=== PATIENT | male | born 2000 ===

== ENCOUNTER 2023-07-08 17:06 | Inpatient (IN) | payer OTHER ==
[~2023-07-08] VITALS: Ht 167.6 cm; Wt 68.5 kg
[~2023-07-08 17:06] MED LIST: DAZIDOX10 MG PO
[2023-07-08] MEDS ORDERED: HYDROmorphone 0.5 MG/0.5 ML SYRINGE IV ONE ×4 (17:45→20:45)
[2023-07-08] MEDS ORDERED: NS 1,000 ML IV ONE ×2 (17:45→19:30)
[2023-07-08 18:00] LABS: BASO % 0.4 % (0.0-2.0); EOS % 0.8 % (0.0-4.0); GRAN # 3.1 K/mm3 (1.4-6.5); GRAN % 64.3 % (42.2-75.2); HEMOGLOBIN 12.6 g/dl (13.5-18.0); LYMPH # 1.4 K/mm3 (1.2-3.4); LYMPH % 28.7 % (20.0-51.0); MEAN CELL VOLUME 89 fl (80.0-100.0); MEAN CORPUSCULAR HEMOGLOBIN 31 pg (27-31); MEAN CORPUSCULAR HGB CONC 35 g/dl (33.0-37.0); MONO # 0.2 K/mm3 (0.1-0.6); PLATELET COUNT 230 K/mm3 (130-400); RED BLOOD COUNT 4.02 M/mm3 (4.20-5.60); REDCELL DISTRIBUTION WIDTH-CV 16.8 % (11.5-14.5); RETIC # 0.17 M/mm3 (0.02-0.16); RETIC % 4.2 % (0.5-3.52)
[2023-07-08 18:07] LABS: HEMATOCRIT 35.9 % (42.0-52.0)
[2023-07-08 18:53] LABS: ALBUMIN 3.7 gm/dL (3.5-5.0); BILIRUBIN,TOTAL 1.6 mg/dL (0.2-1.2); C-REACTIVE PROTEIN 0.55 mg/dL (0.00-0.50); CALCIUM 8.4 mg/dL (8.4-10.2); CREATININE, serum 0.85 mg/dL (0.72-1.25); POTASSIUM 4.1 mmol/L (3.5-4.5); TOTAL PROTEIN 6.1 gm/dL (6.2-8.1)
[2023-07-08 19:25] LABS: COLLECTION METHOD CLEAN CATCH
[2023-07-08 20:14] LABS: SQUAMOUS EPITHELIAL None Seen /hpf (0-10); URINE APPEARANCE Clear (CLEAR/HAZY); URINE BLOOD Negative (NEGATIVE); URINE COLOR Yellow (YELLOW); URINE GLUCOSE Negative (NEGATIVE); URINE KETONE Negative (NEGATIVE); URINE NITRATE Negative (NEGATIVE); URINE PROTEIN(semi-quant) Negative (NEGATIVE); URINE RBC None Seen /hpf (0-2)
[2023-07-08] MEDS ORDERED: HYDROXYURE500 MG/CAP PO (20:46)
[2023-07-08] MEDS ORDERED: ENDARI5 G1 PO (20:48)
[2023-07-08] MEDS ORDERED: LR 1,000 ML IV SCH (21:00)
[2023-07-08] MEDS ORDERED: Acetaminophen 325 MG TAB PO PRN (21:00)
[2023-07-08] MEDS ORDERED: HYDROmorphone 0.5 MG/0.5 ML SYRINGE IV PRN (21:15)
[2023-07-08] MEDS ORDERED: HYDROmorphone PCA 0.2 MG/ML 30 ML VIAL IV SCH (21:30)
[2023-07-08] MEDS ORDERED: diphenhydrAMINE 25 MG CAP PO PRN (21:30)
[2023-07-08] MEDS ORDERED: diphenhydrAMINE 50 MG/ML 1 ML VIAL IV PRN (21:30)
[2023-07-08] MEDS ORDERED: D5W 1,000 ML IV SCH (21:30)
[2023-07-08] MEDS ORDERED: Naloxone 0.4 MG/ML VIAL IV PRN (21:30)
[2023-07-08 21:57] VITALS: BP 115/65; PULSE 73; TEMP 98
[2023-07-08] MEDS ORDERED: Hydroxyurea 500 MG CAP PO SCH (22:00)
--- NOTE | 2023-07-08 22:00 | NUR ---
Up to floor from ER, Tele on.
[2023-07-08] MEDS ORDERED: ADDERALL XR20 MG PO (22:10)
--- NOTE | 2023-07-08 22:30 | NUR ---
Admitted to medical floor from ER,Dx sickle cell crisis- states having left leg pain and back pain 01/27- states pain is sharp. VSS. States is hungry- some snacks given , pt did order food to be delivered to the hospital. Up to bathroom on own- very steady on feet.
[2023-07-08 23:15] VITALS: BP 106/61; PULSE 79
--- NOTE | 2023-07-08 23:15 | NUR ---
DONATIONS ATTENDANT Dilaudid was started at this time, pt understands how to use- states has had it many times before, is getting 0.2mg on demand every 6 minutes, 4mg/4 hr lockout, and a loading dose of 0.5mg given at this time as ordered.
[2023-07-08 23:30] VITALS: BP 116/63; PULSE 75
[2023-07-08 23:45] VITALS: BP 97/54; PULSE 77; TEMP 97.7
[2023-07-09] VITALS (17 sets, daily range): BP systolic 90–129; BP diastolic 50–73; PULSE 67–97; TEMP 97.4–98.4
[2023-07-09 05:37] LABS: BASO % 0.5 % (0.0-2.0); EOS # 0.1 K/mm3 (0.0-0.7); EOS % 1.6 % (0.0-4.0); GRAN % 45.4 % (42.2-75.2); HEMOGLOBIN 11.3 g/dl (13.5-18.0); LYMPH % 45.7 % (20.0-51.0); MEAN CELL VOLUME 90 fl (80.0-100.0); MEAN CORPUSCULAR HEMOGLOBIN 31 pg (27-31); MEAN CORPUSCULAR HGB CONC 34 g/dl (33.0-37.0); MONO # 0.3 K/mm3 (0.1-0.6); MONO % 6.3 % (1.7-9.3); PLATELET COUNT 167 K/mm3 (130-400); RED BLOOD COUNT 3.64 M/mm3 (4.20-5.60); REDCELL DISTRIBUTION WIDTH-CV 15.8 % (11.5-14.5)
[2023-07-09 05:38] LABS: HEMATOCRIT 32.9 % (42.0-52.0)
[2023-07-09 05:52] LABS: CALCIUM 8.4 mg/dL (8.4-10.2); CREATININE, serum 0.73 mg/dL (0.72-1.25); POTASSIUM 4.2 mmol/L (3.5-4.5)
--- NOTE | 2023-07-09 06:47 | NUR ---
Did get some rest this morning for about an hour- did increase the 4 hr limit on the SLOT FLOOR PERSON to 6 mg per order from Leila KANG,,He was hitting the 4 hr max and was still in pain 11/27-- so once the max was increased he has been doing better- resting now, VSS, LR continues at 200cc/hr. Voiding large amounts- getting up to bathroom often
[2023-07-09] MEDS ORDERED: Pantoprazole 40 MG in NS 10 ML IV SCH (07:00)
--- NOTE | 2023-07-09 09:12 | NUR ---
Patient resting in bed, assessment completed, reports his pain is 3/10 on his back. DOCUMENTATION ANALYST in place, receiving fluids per orders. Telemetry in place NSR. Assessment completed, no further needs at this time. Call light within reach.
--- NOTE | 2023-07-09 12:17 | NUR ---
Data: Patient accepted Hospital Fellow visit offered during Hospital Fellow rounds. 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 Patient is originally from [facility]. Assessment: Patient educated Hospital Fellow about some of [facility] culture. Patient educated Hospital Fellow about some aspects of his disease. Plan of Care: Hospital Fellow provided a ministry of presence; supportive listening; and prayer after getting Patient's permission.
--- NOTE | 2023-07-09 12:32 | NUR ---
Recheck Pt BP 129/64.
[2023-07-09] MEDS ORDERED: oxyCODONE 5 MG TAB PO PRN (14:45)
[2023-07-09] MEDS ORDERED: Morphine 4 MG/ML VIAL IV PRN (14:45)
--- NOTE | 2023-07-09 18:09 | NUR ---
PT used the complete vial of his SENIOR PRODUCT DEVELOPMENT SCIENTIST. Then SENIOR PRODUCT DEVELOPMENT SCIENTIST was put on hold. Now getting morphine IV and roxycodone PRN. PT continues getting fluids per orders.
--- NOTE | 2023-07-09 19:40 | NUR ---
PATIENT RESTING IN BED WITH TV OFF WITH VISITORS IN ROOM WITH NO ACUTE DISTRESS NOTED. PATIENT ON ROOM AIR. TELEMETRY INTACT. LR INFUSING INTO RIGHT FOREARM WITH NO COMPLICATIONS NOTED. PATIENT C/O PAIN. PATIENT VERBALIZED THAT MEDICATION WOULD BE GIVEN. PATIENT STATES PAIN LEVEL IS 8 ON SCALE OF 0 TO 10. PATIENT DENIES ANY NEEDS AT THIS TIME. BED IN LOW POSITION WITH WHEELS LOCKED WITH RAILS UP X2 AND CALL LIGHT WITHIN REACH.
--- NOTE | 2023-07-09 20:56 | NUR ---
PATIENT C/O PAIN. AKIKO PEARL NOTIFED. NO NEW ORDERS RECIEVED.
[2023-07-09] MEDS ORDERED: Sennosides/Docusate 8.6-50 MG TAB PO SCH (21:00)
--- NOTE | 2023-07-09 21:00 | NUR ---
PATIENT REQUESTED TO TALK TO AKIKO KAGN. AKIKO CALLED. ORDER RECIEVED FOR 1MG MORPHINE IV TIMES ONE.
[2023-07-09] MEDS ORDERED: Morphine 4 MG/ML VIAL IV ONE (21:05)
[2023-07-09] MEDS ORDERED: Hydroxyurea 500 MG CAP PO SCH (22:00)
--- NOTE | 2023-07-09 22:05 | NUR ---
PATIENT C/O PAIN. IV MORPHINE GIVEN PER MD ORDER. PATIENT STATES PAIN LEVEL IS 10 ON SCALE OF 0 TO 10. PATIENT DENIES ANY OTHER NEEDS. BED IN LOW POSITION WITH WHEELS LOCKED WITH RAILS UP X2 AND CALL LIGHT WITHIN REACH.
[2023-07-10] VITALS (14 sets, daily range): BP systolic 98–141; BP diastolic 61–73; PULSE 72–93; TEMP 97.9–98.1
--- NOTE | 2023-07-10 00:15 | NUR ---
PATIENT C/O PAIN. PATIENT REQUESTED IV MORPHINE. PATIENT STATES PAIN LEVEL IS 8 ON SCALE OF 0 TO 10. SEE EMAR. PATIENT TOLERATED WELL. PATIENT DENIES ANY OTHER NEEDS AT PRESENT. BED IN LOW POSITION WITH WHEELS LOCKED WITH RAILS UP X2 AND CALL LIGHT WITHIN REACH.
[2023-07-10 07:50] LABS: RETIC # 0.14 M/mm3 (0.02-0.16); RETIC % 3.7 % (0.5-3.52)
--- NOTE | 2023-07-10 10:22 | NUR ---
SW met with patient to complete intake. Patient states that he lives in [facility] alone, next of kin is Sukhwinder Amezcua [phone]. Patient provides he is independent with ADL's, does not utilize DME and does not utilize HH services at this time. Patient provides that he does not have a PCP, but has an appointment tomorrow and provides he will be obtaining one, pharmacy is [facility], and he does not have anyone appointed as DPOA/HC. Patient plans to return to her home upon DC. SW will continue to follow. DC plan: home
[2023-07-10 10:39] LABS: ALBUMIN 3.7 gm/dL (3.5-5.0); CALCIUM 8.9 mg/dL (8.4-10.2); CREATININE, serum 0.8 mg/dL (0.72-1.25); POTASSIUM 4.1 mmol/L (3.5-4.5); TOTAL PROTEIN 5.9 gm/dL (6.2-8.1)
[2023-07-10] MEDS ORDERED: oxyCODONE/Acetaminophen 10-325 MG TAB PO PRN (11:45)
[2023-07-10] MEDS ORDERED: HYDROmorphone 0.5 MG/0.5 ML SYRINGE IV PRN (11:45)
[2023-07-11 03:48] VITALS: BP 105/63; PULSE 68; TEMP 98
[2023-07-11 03:55] VITALS: BP_SYST 105
[2023-07-11 06:24] LABS: HEMOGLOBIN 10.5 g/dl (13.5-18.0); MEAN CELL VOLUME 89 fl (80.0-100.0); MEAN CORPUSCULAR HEMOGLOBIN 31 pg (27-31); MEAN CORPUSCULAR HGB CONC 35 g/dl (33.0-37.0); PLATELET COUNT 143 K/mm3 (130-400); RED BLOOD COUNT 3.37 M/mm3 (4.20-5.60); REDCELL DISTRIBUTION WIDTH-CV 15.4 % (11.5-14.5)
[2023-07-11 06:33] LABS: HEMATOCRIT 30.1 % (42.0-52.0)
[2023-07-11 06:53] LABS: CALCIUM 8.6 mg/dL (8.4-10.2); CREATININE, serum 0.78 mg/dL (0.72-1.25); MAGNESIUM 1.9 mg/dL (1.6-2.6); POTASSIUM 3.7 mmol/L (3.5-4.5)
[2023-07-11 07:11] VITALS: BP 99/61; PULSE 70; TEMP 97.9
[2023-07-11] MEDS ORDERED: DAZIDOX10 MG PO (08:26)
[2023-07-11 09:00] VITALS: BP_SYST 99
--- NOTE | 2023-07-11 09:04 | NUR ---
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 PT COMPLAINED OF LOWER BACK AND LEG PAIN. PT GIVEN PERCOCET (FULL TAB AND HALF TAB 45MIN LATER). HOWEVER, PT FELT THE PERCOCET WAS NOT EFFECTIVE. PT THEN GIVEN DILAUDID AND PT FELT THAT WAS EFFECTIVE FOR HIS PAIN. PT DENIED CHEST PAIN, PALPITATIONS, SOB, N,V,D OR DIZZINESS. CALL LIGHT WITHIN REACH.
--- NOTE | 2023-07-11 09:40 | NUR ---
patient alert and oriented x4. patient reports pain at a 4- 6 out 10.prn given.Patient dischargre instructions given and patient had no concerns. patient was informed of his medical appointment later today per discharge orders and he was reminded of it again while discontinuing his IV and tele. patient will call when his ride gets here to be transported out.
== END 2023-07-11 10:55 | disposition home or self-care (01) | DRG 812 ==
LOC: COL.ER 17:06 → MEDICAL 21:04
PROVIDERS: Internal Medicine; Nurse Practitioner; Nurse Practitioner Family; ADMIT Internal Medicine
DX: D57.00 Hb-SS disease with crisis, unspecified (principal); I95.9 Hypotension, unspecified; Z90.49 Acquired absence of other specified parts of digestive tract; Z88.1 Allergy status to other antibiotic agents; Z79.899 Other long term (current) drug therapy
CPT/HCPCS: C9113; J1170; J1650; J2270; J7030; J7120

== ENCOUNTER 2024-02-25 21:40 | Emergency (ER) | payer SELFPAY ==
[~2024-02-25] VITALS: Ht 170.2 cm; Wt 70.0 kg
[~2024-02-25 21:40] MED LIST changes: +ADDERALL XR20 MG PO; +ENDARI5 G1 PO; +HYDROXYURE500 MG/CAP PO
[2024-02-25 21:49] VITALS: TEMP 98
[2024-02-25 22:09] LABS: BASO % 0.5 % (0.0-2.0); EOS # 0.1 K/mm3 (0.0-0.7); EOS % 0.8 % (0.0-4.0); GRAN # 3.5 K/mm3 (1.4-6.5); GRAN % 57.1 % (42.2-75.2); HEMATOCRIT 37.4 % (42.0-52.0); HEMOGLOBIN 13.3 g/dl (13.5-18.0); LYMPH # 2.2 K/mm3 (1.2-3.4); LYMPH % 35.7 % (20.0-51.0); MEAN CELL VOLUME 88 fl (80.0-100.0); MEAN CORPUSCULAR HEMOGLOBIN 31 pg (27-31); MEAN CORPUSCULAR HGB CONC 36 g/dl (33.0-37.0); MONO # 0.3 K/mm3 (0.1-0.6); MONO % 5.6 % (1.7-9.3); PLATELET COUNT 184 K/mm3 (130-400); RED BLOOD COUNT 4.25 M/mm3 (4.20-5.60); REDCELL DISTRIBUTION WIDTH-CV 17.4 % (11.5-14.5); RETIC # 0.14 M/mm3 (0.02-0.16); RETIC % 3.3 % (0.5-3.52)
[2024-02-25 22:55] LABS: ALBUMIN 4.3 g/dL (3.5-5.0); BILIRUBIN,TOTAL 2.4 mg/dL (0.2-1.2); CALCIUM 9.2 mg/dL (8.4-10.2); CREATININE, serum 0.84 mg/dL (0.72-1.25); POTASSIUM 3.9 mEq/L (3.5-4.5)
[2024-02-25] MEDS ORDERED: HYDROmorphone 0.5 MG/0.5 ML SYRINGE IV ONE ×2 (23:00→23:45)
[2024-02-25] MEDS ORDERED: Ketorolac 30 MG/ML VIAL IV ONE (23:00)
[2024-02-25] MEDS ORDERED: NS 1,000 ML IV ONE ×2 (23:00→23:45)
[2024-02-26] MEDS ORDERED: Home oxyCODONE/Acetaminophen 5/325 MG #4 TAB/PACK PO ONE (01:15)
[2024-02-26] MEDS ORDERED: oxyCODONE 5 MG TAB PO ONE (01:15)
[2024-02-26 01:55] VITALS: BP 110/82; PULSE 72
== END 2024-02-26 01:55 | disposition home or self-care (01) ==
LOC: COL.ER 21:40
PROVIDERS: Nurse Practitioner
DX: D57.00 Hb-SS disease with crisis, unspecified (principal)
CPT/HCPCS: J1170; J1885; J7030